=== PATIENT | female | born 1970 | race Asian ===

== ENCOUNTER 2017-08-06 16:11 | Inpatient (IN) | payer OTHER ==
[~2017-08-06] VITALS: Ht 149.9 cm; Wt 58.6 kg
[2017-08-06] MEDS ORDERED: 0.9 % SODIUM CHLORIDE 10 ML DISP.SYRIN. IV PRN (16:45)
[2017-08-06 17:47] LABS: BASO % 0 % (0-3); EOS % 0 % (0-3); HEMATOCRIT 31.3 % (36.0-47.0); HEMOGLOBIN 10.6 g/dL (12.0-15.5); LYMPH # 0.5 x10^3/uL (1.0-4.8); LYMPH % 3 % (24-48); MEAN CORPUSCULAR HEMOGLOBIN 24 pg (25-35); MEAN CORPUSCULAR HGB CONC 34 g/dL (31-37); MEAN CORPUSCULAR VOLUME 70 fL (79-100); MONO % 6 % (0-9); NEUT # 13.8 x10^3uL (1.8-7.7); NEUT % 91 % (31-73); PLATELET COUNT 305 x10^3/uL (140-400); RED BLOOD COUNT 4.48 x10^6/uL (3.50-5.40); RED CELL DISTRIBUTION WIDTH 13.4 % (11.5-14.5); WHITE BLOOD COUNT 15.2 x10^3/uL (4.0-11.0)
[2017-08-06] MEDS ORDERED: HYDROmorphone PF 2 MG/ML VIAL IV ONE (17:50)
--- NOTE | 2017-08-06 17:56 | PHYS DOC ---
Past History Past Medical History: Other Past Surgical History: , Other Alcohol Use: None Drug Use: None Adult General Chief Complaint Chief Complaint: SYNCOPE HPI HPI Patient is a 46 year old F who presents with syncope. Phouthone states that she has had cough or shortness of breath nausea abdominal pain and fever over the past 5 days. She states that her symptoms have been mildly worsening. She denies remembering her syncopal episode today. She was seen in [facility] earlier today and was prescribed an antibiotic for an ear infection. She also describes mild right ear pain Review of Systems Review of Systems Constitutional: Negative except history of present illness Eyes: Denies change in visual acuity, redness, or eye pain [] HENT: Nasal congestion and right ear pain Respiratory: Negative except history of present illness Cardiovascular: No additional information not addressed in HPI [] GI: Denies abdominal pain, nausea, vomiting, bloody stools or diarrhea [] : Denies dysuria or hematuria [] Musculoskeletal: Denies back pain or joint pain [] Integument: Denies rash or skin lesions [] Neurologic: Denies focal weakness or sensory changes [] mild headache is noted Endocrine: Denies polyuria or polydipsia [] Family History Family History Noncontributory Current Medications Current Medications Current Medications Medications (Trade) Dose Ordered Sig/Cheryl Start Time Stop Time Status Last Admin Dose Admin Hydromorphone HCl (Dilaudid) 2 mg 1X ONCE 08/06/17 17:50 08/06/17 17:51 Sodium Chloride (Normal Saline Flush) 10 ml QSHIFT PRN 08/06/17 16:45 08/06/17 17:30 10 ML Allergies Allergies Allergies Coded Allergies Type Severity Reaction Last Updated Verified ibuprofen Allergy Unknown abdominal pain 08/06/17 Yes tramadol Allergy Unknown abdominal pain 08/06/17 Yes Physical Exam Physical Exam Constitutional: Well developed, well nourished, no acute distress, non-toxic appearance. [] Mild diaphoresis HENT: Normocephalic, atraumatic, clear fluid behind the right TM. Left TM within normal limits Oropharynx moist, no oral exudates, nose normal. [] Eyes: EOMI, conjunctiva normal, no discharge. [] Neck: Normal range of motion, no tenderness, supple, no stridor. [] Cardiovascular: tachycardia with regular rhythm, no murmur [] Lungs & Thorax: Bilateral breath sounds clear to auscultation [] decreased breath sounds Abdomen: Bowel sounds normal, soft, no masses, no pulsatile masses. [] Mild right sided tenderness to deep palpation Skin: Warm, dry, no erythema, no rash. [] Back: No tenderness, no CVA tenderness. [] Extremities: No tenderness, no cyanosis, no clubbing, ROM intact, no edema. [] Neurologic: Alert and oriented X 3, normal motor function, normal sensory function, no focal deficits noted. [] Psychologic: Affect normal, judgement normal, mood normal. [] Current Patient Data Vital Signs Vital Signs Date Time Temp Pulse Resp B/P (MAP) Pulse Ox O2 Delivery O2 Flow Rate FiO2 08/06/17 16:11 100.1 111 21 95 Room Air EKG EKG Sinus tachycardia with no ST changes Radiology/Procedures Radiology/Procedures Chest x-ray pending Course & Med Decision Making Course & Med Decision Making Pertinent Labs and Imaging studies reviewed. (See chart for details) Care was transitioned to Dr. Roxana Diaz Disclaimer Emily Disclaimer This chart was dictated in whole or in part using Voice Recognition software in a busy, high-work load, and often noisy Emergency Department environment. It may contain unintended and wholly unrecognized errors or omissions. Departure Departure: Referrals: PROMISE HOUSTON DO, MPH (PCP) ABEBA RENEE MD Aug 06, 2017 17:55
[2017-08-06] MEDS ORDERED: IV NORMAL SALINE 1,000ML 1,000 ML ONE (17:59)
[2017-08-06] MEDS ORDERED: IV NORMAL SALINE 1,000ML 1,000 ML IV ONE (18:00)
[2017-08-06 18:02] LABS: ALBUMIN 2.4 g/dL (3.4-5.0); ALBUMIN/GLOBULIN RATIO 0.6 (1.0-1.7); CALCIUM 8.3 mg/dL (8.5-10.1); CREATININE 0.8 mg/dL (0.6-1.0); GFR 77.6; TOTAL BILIRUBIN 0.8 mg/dL (0.2-1.0); TOTAL PROTEIN 6.6 g/dL (6.4-8.2)
[2017-08-06 18:05] LABS: POTASSIUM 2.5 mmol/L (3.5-5.1)
[2017-08-06 18:19] LABS: BILIRUBIN,URINE NEG (NEG); CLARITY,URINE TURBID; COLOR,URINE YELLOW; GLUCOSE,URINE NEG (NEG); NITRITE,URINE POS (NEG); UROBILINOGEN,URINE 1 mg/dL (0.2 mg/dL)
[2017-08-06 18:20] LABS: RBC,URINE 0 /HPF (0-2); WBC,URINE >40 /HPF (0-4)
[2017-08-06 18:21] LABS: BACTERIA,URINE MOD /HPF (0-FEW)
[2017-08-06] MEDS ORDERED: IV NORMAL SALINE 1,000ML 1,000 ML IV SCH (18:25)
[2017-08-06] MEDS ORDERED: POTASSIUM CHLORIDE 20 MEQ/15 ML ORAL LIQUID. PO ONE (18:45)
[2017-08-06 18:46] LABS: AMPHETAMINE/METHAMPHETAMINE NEG (NEG); BARBITURATES NEG (NEG); BENZODIAZEPINES NEG (NEG); CANNABINOIDS NEG (NEG); COCAINE NEG (NEG); METHADONE NEG (NEG); OPIATES NEG (NEG); PHENCYCLIDINE NEG (NEG)
--- NOTE | 2017-08-06 18:56 | RAD ---
CT HEAD WO CONTRAST History: Syncope, dizziness, fever, chills Comparison: None. Technique: Noncontrast CT imaging was performed of the head. Exposure: One or more of the following individualized dose reduction techniques were utilized for this examination: 1. Automated exposure control 2. Adjustment of the mA and/or kV according to patient size 3. Use of iterative reconstruction technique. Findings: There is mild motion. No acute extra-axial or parenchymal hemorrhage is identified. There is no significant intra-axial mass effect, midline shift, or extra-axial fluid collection. The holland-white differentiation of the major vascular territories is preserved. The ventricles, sulci, and cisterns are within normal limits in size and configuration. Mastoid air cells are aerated. There is patchy jtyu-qu-rbglmzbx ethmoid air cell mucosal thickening No acute calvarial abnormality is identified. There is a small focus of nonspecific calcification along the right frontal cortical surface. There is likely mild cerebellar tonsillar ectopia. Impression: 1. No acute intracranial abnormality is identified. There is likely mild cerebellar tonsillar ectopia. 2. There is some patchy ethmoid air cell mucosal thickening. Electronically signed by: Obed Pereira MD (08/06/2017 6:53 PM) [facility]
[2017-08-06 18:59] LABS: MAGNESIUM 1.7 mg/dL (1.8-2.4)
[2017-08-06 19:16] LABS: ALBUMIN 2.4 g/dL (3.4-5.0); DIRECT BILIRUBIN 0.4 mg/dL (0.0-0.2); TOTAL BILIRUBIN 0.8 mg/dL (0.2-1.0); TOTAL PROTEIN 6.6 g/dL (6.4-8.2)
[2017-08-06] MEDS ORDERED: IOHEXOL 300 MG/ML 75 ML VIAL. IV ONE (20:30)
[2017-08-06] MEDS ORDERED: CONTRAST GIVEN MC PRN (20:30)
[2017-08-06] MEDS ORDERED: cefTRIAXone SODIUM 1 GM VIAL IV ONE (21:29)
[2017-08-06] MEDS ORDERED: IV NORMAL SALINE 50ML 50 ML ONE (21:29)
[2017-08-06] MEDS ORDERED: BENZONATATE 100 MG CAPSULE. PO ONE (21:45)
--- NOTE | 2017-08-06 22:03 | RAD ---
Chest CTA History: Elevated d-dimer, tachycardia, syncope Technique: After bolus of intravenous contrast, CT imaging was performed of the chest. Multiplanar reconstruction images to include MIP reconstruction images are submitted. Exposure: One or more of the following individualized dose reduction techniques were utilized for this examination: 1. Automated exposure control 2. Adjustment of the mA and/or kV according to patient size 3. Use of iterative reconstruction technique. Comparison: None Findings: [No pulmonary embolism is identified.] There is no pneumothorax, abnormal pericardial or pleural fluid, or lobar consolidation. Thoracic aortic caliber is within normal limits without intraluminal flap. No abnormality is identified of the limited visualized abdominal visceral organs. No significantly enlarged lymph nodes are identified, some small mediastinal nodes present. There is perihilar bronchial wall thickening. Impression: 1. No pulmonary embolism is identified. 2. There is perihilar bronchial wall thickening, can be seen with bronchitis. Electronically signed by: Obed Pereira MD (08/06/2017 10:00 PM) [facility]
--- NOTE | 2017-08-06 22:09 | EKG ---
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
[2017-08-06 22:36] LABS: % BANDS 6 % (0-9); % LYMPHS 1 % (24-48); % MONOS 8 % (0-10); % SEGS 85 % (35-66)
[2017-08-06 22:40] LABS: PLT ESTIMATE ADEQUATE (ADEQUATE); TARGET CELLS OCC
[2017-08-06 22:42] LABS: MICROCYTOSIS MOD
[2017-08-06 22:43] LABS: HYPOCHROMIA SLIGHT
[2017-08-06] MEDS: IPRATRPIUM/ALBUTEROL 0.5/2.5MG 3 ML NEBU. NEB SCH (23:53)
--- NOTE | 2017-08-06 23:54 | PHYS DOC ---
General Chief Complaint: SYNCOPE Stated Complaint: SYNCOPE Time Seen by MD: 18:11 Source: patient, RN/MD Exam Limitations: language barrier Problems: History of Present Illness Initial Comments Patient is a 46-year-old female brought to the ED by EMS for syncope. Patient was signed out to me at 1800 shift change, please see Dr Feng ED note. Upon receiving sign out I entered the following additional orders: Cardiac enzymes, magnesium, d-dimer, BNP, urine drug screen, CT of the head without contrast. Dr Feng reported that the patient was found in a school parking lot where she was picking up her son passed out at the wheel. EMS was called and on arrival the patient was awake and she was brought to the ED for evaluation. Patient relays that for the past several days she's had a dry cough and right ear pain, she presented to [facility] today and received a prescription for "antibiotic" which she had not yet filled. She's had some bilateral flank discomfort and chills for the past 3 days and admits to not having eaten or had much to drink during that time. She's had some chills sweats or myalgias but no measured fevers. She denies dysuria hematuria or odor, denies headache chest pain palpitations or difficulty breathing, in the ED denies any focal neurologic deficit. Albanian as a second language for the patient however she has good communication skills. ED vitals: 100.1, 111, 21, 110/63, 95% on room air Timing/Duration: getting worse (3 days) Severity: severe Modifying Factors: improves with other Associated Symptoms: cough, diaphoresis, fever/chills, loss of appetite, malaise, syncope, weakness, other Allergies: Coded Allergies: ibuprofen (Verified Allergy, Unknown, abdominal pain, 08/06/17) tramadol (Verified Allergy, Unknown, abdominal pain, 08/06/17) Past Medical History Medical History: other (prediabetic, GERD, chronic right ear pain) Surgical History: other (right ear surgery) Social History Smoker: non-smoker Alcohol: none Drugs: none Review of Systems Constitutional: see HPI EENTM: see HPI, denies eye pain, denies blurred vision, ear pain, denies ear discharge, denies nose pain, denies nose congestion, denies throat pain, denies mouth pain Respiratory: cough, denies shortness of breath, denies wheezing Cardiovascular: denies chest pain, denies palpitations, syncope Gastrointestinal: denies abdominal pain, denies diarrhea, nausea, denies vomiting Genitourinary: see HPI, denies dysuria, denies frequency, denies hematuria Musculoskeletal: see HPI, denies joint swelling, muscle pain, denies neck pain Psychiatric/Neurological: see HPI, denies headache Hematologic/Lymphatic: denies blood clots, denies easy bleeding, denies easy bruising Physical Exam General Appearance: WD/WN, no apparent distress Eyes: bilateral eye normal inspection, bilateral eye PERRL, bilateral eye EOMI Ear, Nose, Throat: hearing grossly normal, normal pharynx, other (mildly dry mucous membranes, slight bilateral TM redness no bulging good light reflex canals with some cerumen) Neck: non-tender, supple Respiratory: other (mildly coarse breath sounds bilaterally with good air movement no respiratory distress chest is nontender) Cardiovascular: normal peripheral pulses, no edema, tachycardia Gastrointestinal: normal bowel sounds, non tender (no epigastric or right upper quadrant tenderness), soft, no organomegaly Back: CVA tenderness (R), CVA tenderness (L) Extremities: normal range of motion, non-tender, normal inspection Neurologic/Psychiatric: console operator II-XII nml as tested, no motor/sensory deficits, alert, normal mood/affect, oriented x 3 Skin: normal color, warm/dry Orders, Labs, Meds EKG: Normal sinus rhythm 85 bpm, T inversion in V2, nonspecific T contour abnormalities no STEMI changes. Interpreted by Dr. Jackson. 2015: D-dimer elevated at 1.42, CTA of the chest ordered. Patient will have a prolonged ED course due to ED volume and added testing at shift change and with abnormal results. Pertinent labs: White blood cells 15.2, hemoglobin 10.6, MCV 70, d-dimer 1.42, potassium 2.5, lactic acid 1.2, magnesium 1.7, BUN 9, creatinine 0.8, AST 233, ALT 202, urinalysis grossly positive for products of infection no squamous epithelials, urine drug screen negative Normal saline bolus, Tessalon Perles, Rocephin 1 mg IV added to current order set PATIENT: ZBIGNIEW MONTOYA ACCOUNT: [id number] : 1970 LOCATION: ER AGE: 46 SEX: F EXAM STATUS: REG ER ORD. PHYSICIAN: APRIL JACKSON DO REASON: syncope PROCEDURE: CT HEAD WO CONTRAST CT HEAD WO CONTRAST History: Syncope, dizziness, fever, chills Comparison: None. Technique: Noncontrast CT imaging was performed of the head. Exposure: One or more of the following individualized dose reduction techniques were utilized for this examination: 1. Automated exposure control 2. Adjustment of the mA and/or kV according to patient size 3. Use of iterative reconstruction technique. Findings: There is mild motion. No acute extra-axial or parenchymal hemorrhage is identified. There is no significant intra-axial mass effect, midline shift, or extra-axial fluid collection. The holland-white differentiation of the major vascular territories is preserved. The ventricles, sulci, and cisterns are within normal limits in size and configuration. Mastoid air cells are aerated. There is patchy nonv-pv-ejqrqtcb ethmoid air cell mucosal thickening No acute calvarial abnormality is identified. There is a small focus of nonspecific calcification along the right frontal cortical surface. There is likely mild cerebellar tonsillar ectopia. Impression: 1. No acute intracranial abnormality is identified. There is likely mild cerebellar tonsillar ectopia. 2. There is some patchy ethmoid air cell mucosal thickening. Electronically signed by: Willow Pereira MD (08/06/2017 6:53 PM) [facility] DICTATED AND SIGNED BY: WILLOW PEREIRA MD DATE: 08/06/17 185 CC: APRIL JACKSON DO; PROMISE HOUSTON DO, MPH ~ PATIENT: ZBIGNIEW MONTOYA ACCOUNT: [id number] : 1970 LOCATION: ER AGE: 46 SEX: F EXAM STATUS: REG ER ORD. PHYSICIAN: APRIL JACKSON DO REASON: tachycardia, syncope, elev d-dimer PROCEDURE: CT ANGIOGRAPHY CHEST Chest CTA History: Elevated d-dimer, tachycardia, syncope Technique: After bolus of intravenous contrast, CT imaging was performed of the chest. Multiplanar reconstruction images to include MIP reconstruction images are submitted. Exposure: One or more of the following individualized dose reduction techniques were utilized for this examination: 1. Automated exposure control 2. Adjustment of the mA and/or kV according to patient size 3. Use of iterative reconstruction technique. Comparison: None Findings: [No pulmonary embolism is identified.] There is no pneumothorax, abnormal pericardial or pleural fluid, or lobar consolidation. Thoracic aortic caliber is within normal limits without intraluminal flap. No abnormality is identified of the limited visualized abdominal visceral organs. No significantly enlarged lymph nodes are identified, some small mediastinal nodes present. There is perihilar bronchial wall thickening. Impression: 1. No pulmonary embolism is identified. 2. There is perihilar bronchial wall thickening, can be seen with bronchitis. Electronically signed by: Willow Pereira MD (08/06/2017 10:00 PM) [facility] DICTATED AND SIGNED BY: WILLOW PERIERA MD DATE: 08/06/17 2154 CC: APRIL JACKSON DO; PROMISE HOUSTON DO, MPH ~ The patient remained pleasant, cooperative, and patient throughout the ED course despite prolonged period here in the emergency department. She had several episodes of coughing but no trouble breathing Tessalon Perles provided some relief. I discussed the patient with Dr. Conde who accepts the patient for inpatient treatment and further evaluation. Impressions: Syncope Hypokalemia Pyelonephritis Microcytic anemia likely iron deficiency Elevated d-dimer Elevated liver function tests APRIL JACKSON DO Aug 06, 2017 23:54
[2017-08-07] MEDS: IV NORMAL SALINE 1,000ML 1,000 ML IV SCH ×4 (02:44→22:45)
[2017-08-07 03:00] VITALS: BP 93/53
[2017-08-07] MEDS ORDERED: POTASSIUM CHLORIDE 20 MEQ/15 ML ORAL LIQUID. FT SCH (03:00)
[2017-08-07] MEDS ORDERED: MAGNESIUM SULFATE 2GM 50 ML IV ONE (03:00)
[2017-08-07 04:18] VITALS: BP 106/71
[2017-08-07 04:37] LABS: BASO # 0.1 x10^3/uL (0.0-0.2); BASO % 0 % (0-3); EOS % 0 % (0-3); LYMPH # 0.8 x10^3/uL (1.0-4.8); LYMPH % 5 % (24-48); MEAN CORPUSCULAR HEMOGLOBIN 24 pg (25-35); MEAN CORPUSCULAR HGB CONC 33 g/dL (31-37); MEAN CORPUSCULAR VOLUME 71 fL (79-100); MONO # 1.1 x10^3/uL (0.0-1.1); MONO % 6 % (0-9); NEUT # 16.1 x10^3uL (1.8-7.7); NEUT % 89 % (31-73); PLATELET COUNT 265 x10^3/uL (140-400); RED BLOOD COUNT 4.22 x10^6/uL (3.50-5.40); RED CELL DISTRIBUTION WIDTH 13.6 % (11.5-14.5); WHITE BLOOD COUNT 18.1 x10^3/uL (4.0-11.0)
[2017-08-07 04:56] LABS: ALBUMIN 2.2 g/dL (3.4-5.0); ALBUMIN/GLOBULIN RATIO 0.6 (1.0-1.7); CALCIUM 8.1 mg/dL (8.5-10.1); CREATININE 0.8 mg/dL (0.6-1.0); GFR 77.6; MAGNESIUM 2.5 mg/dL (1.8-2.4); POTASSIUM 4.2 mmol/L (3.5-5.1); TOTAL BILIRUBIN 0.6 mg/dL (0.2-1.0); TOTAL PROTEIN 6.2 g/dL (6.4-8.2)
[2017-08-07 05:00] VITALS: BP 90/58
[2017-08-07] MEDS: IPRATRPIUM/ALBUTEROL 0.5/2.5MG 3 ML NEBU. NEB SCH ×2 (05:31→11:01)
--- NOTE | 2017-08-07 07:47 | RAD ---
Chest, 2 views, 08/06/2017: History: Syncope, dizziness, chills The heart size and pulmonary vascularity are normal. No pulmonary infiltrates are seen. There is no evidence of pleural fluid. There is minimal spurring in the spine. IMPRESSION: No acute cardiopulmonary abnormality is detected.
[2017-08-07] MEDS ORDERED: PANTOPRAZOLE IV PUSH 40 MG VIAL. IVP ONE (08:20)
[2017-08-07 11:01] VITALS: BP 96/65
--- NOTE | 2017-08-07 13:29 | RAD ---
Abdominal ultrasound, 08/07/2017: History: Abdominal pain The gallbladder is within normal limits in size. There is no sonographic evidence of cholelithiasis. The gallbladder dent are not thickened. No bile duct dilatation is seen. The visualized portions of the liver, pancreas, spleen and both kidneys are unremarkable. The abdominal aorta and inferior vena cava show no significant abnormality. No free fluid is evident in the abdomen. IMPRESSION: No significant abnormality is detected.
[2017-08-07] MEDS ORDERED: MONT10TA9 PO (13:50)
[2017-08-07] MEDS ORDERED: FEXO180T81 PO (13:50)
[2017-08-07] MEDS ORDERED: PANT40TA3 PO (13:51)
[2017-08-07] MEDS ORDERED: ALBU8.5H8 INH (13:51)
[2017-08-07] MEDS ORDERED: AMOX1TAB58 PO (13:52)
[2017-08-07] MEDS ORDERED: ACET325T9 PO (13:52)
[2017-08-07] MEDS ORDERED: DEXT30SU19 PO (13:53)
[2017-08-07] MEDS ORDERED: DEXTROSE 50% 25 GM / 50ML DISP.SYRIN. IV PRN (14:00)
--- NOTE | 2017-08-07 14:59 | HP ---
ADMIT DATE: 08/07/2017 REASON FOR ADMISSION: Syncope, cough, left flank pain. HISTORY OF PRESENT ILLNESS: This is a 46-year-old female originally from [facility], who presented to the Emergency Room after the incident of syncope. She has not been feeling well and she was in the school parking lot where she was going to picker tender her son. Her son is only 5 years old. You have to go into the school to picker tender the child and she evidently passed out in the car and they came out to find and found her passed out in the car. EMS was called and she was taken to the hospital. PAST MEDICAL HISTORY: Significant for GERD. She has also been recently treated at [facility] for fever, chills, cough. She received a prescription for antibiotics, but she did not fill it. She also has had several days where she has felt so terrible that she has had very little to eat or drink. Other past medical history, prediabetes. She has fibromyalgia. PAST SURGICAL HISTORY: She has had right ear surgery. MEDICATIONS: Protonix. She states she was just recently placed on Protonix. SOCIAL HISTORY: Nonsmoker, nondrinker, no drugs. ALLERGIES: IBUPROFEN AND TRAMADOL. REVIEW OF SYSTEMS: Positive for fever back and forth, excessive sleeping over the last few days, ear pain, some nausea. Denies dysuria, frequency or hematuria. Positive muscle pain. 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 OBJECTIVE VITAL SIGNS: T-max was 100.1 yesterday afternoon; mildly tachycardic yesterday, now pulse is 84; blood pressure 96/65; and pulse ox 95% on room air. GENERAL: A 46-year-old who is in no acute distress. HEENT: Her TMs are dull bilaterally. No erythema or bulging of the drums. Nose is patent. Throat was clear. Tongue was dry. NECK: Supple, without adenopathy. LUNGS: Clear to auscultation. CARDIOVASCULAR: Regular rhythm and rate. ABDOMEN: Soft. She has some mild left flank tenderness, some mild right upper quadrant tenderness, but no rebound. EXTREMITIES: Without edema. LABORATORY DATA: AST 154; ALT is 190, that is going down since yesterday. Albumin is 2.2. Troponins negative x 3. CBC: White blood cell count 18.1, hemoglobin 10.0, hematocrit 30.0, MCV is 71. Drug screen negative. D-dimer 1.42. Urinalysis negative for glucose, but positive for protein, greater than 40 white cells, moderate leukocyte esterase, positive nitrites, hCG negative. IMAGING: Chest CTA shows some bronchitis, no pulmonary embolism. Abdominal ultrasound is pending. Head CT shows some patchy ethmoid air cell thickening. ASSESSMENT: 1. Pyelonephritis with sepsis. 2. Microcytic anemia, questionable etiology. Iron studies ordered. 3. Episode of syncope related to illness. 4. Fibromyalgia. 5. Acute bronchitis, on antibiotics. 6. Severe protein-calorie malnutrition. We will order supplements. 7. Fasting glucose of 200 in a prediabetic state. We will order hemoglobin A1c and treat further. She is on ceftriaxone and IV fluids, feels a little bit better this morning. 8. Hypomagnesemia that has been treated. 9. Hypokalemia of 2.5 and that also has been treated. MYRTLE CONNOLLY DO DR: FANI/andrade JOB#: [id number] / [id number]
[2017-08-07] MEDS: MONTELUKAST 10 MG TABLET. PO SCH (15:29)
[2017-08-07] MEDS: BENZONATATE 100 MG CAPSULE. PO SCH ×2 (15:29→19:48)
[2017-08-07] MEDS: guaiFENesin DM 600/30MG 1 TAB TAB.ER.12H PO SCH ×2 (15:29→19:48)
[2017-08-07] MEDS: INSULIN ASPART 300 UNITS/3 ML INSULN.PEN SQ SCH ×2 (16:30→19:51)
[2017-08-07 19:54] VITALS: BP 112/71
[2017-08-07] MEDS: ACETAMINOPHEN 325 MG TABLET PO PRN (20:06)
[2017-08-07 22:59] VITALS: BP 107/68
--- NOTE | 2017-08-07 23:45 | NUR ---
Pt c/o increased coughing and slight SOA. Normally uses rescue inhaler at home. Pt given duoneb treatment, reports improvement. Now resting in bed. Will monitor.
[2017-08-08] VITALS (12 sets, daily range): BP systolic 108–146; BP diastolic 75–94
[2017-08-08] MEDS ORDERED: IPRATRPIUM/ALBUTEROL 0.5/2.5MG 3 ML NEBU. NEB ONE
[2017-08-08] MEDS ORDERED: BENZOCAINE/MENTHOL LOZENGE 16'S BOX. ONE (04:53)
[2017-08-08] MEDS: BENZOCAINE/MENTHOL LOZENGE 16'S BOX. PO PRN ×2 (05:06→10:32)
[2017-08-08 06:09] LABS: HEMOGLOBIN A1C 5.6 % (4.8-5.6)
[2017-08-08 06:21] LABS: BASO # 0.1 x10^3/uL (0.0-0.2); BASO % 0 % (0-3); EOS # 0.1 x10^3/uL (0.0-0.7); EOS % 1 % (0-3); HEMATOCRIT 27.4 % (36.0-47.0); HEMOGLOBIN 9.2 g/dL (12.0-15.5); LYMPH # 2.2 x10^3/uL (1.0-4.8); LYMPH % 14 % (24-48); MEAN CORPUSCULAR HEMOGLOBIN 23 pg (25-35); MEAN CORPUSCULAR HGB CONC 34 g/dL (31-37); MEAN CORPUSCULAR VOLUME 70 fL (79-100); MONO # 1.7 x10^3/uL (0.0-1.1); MONO % 11 % (0-9); NEUT % 74 % (31-73); PLATELET COUNT 317 x10^3/uL (140-400); RED BLOOD COUNT 3.93 x10^6/uL (3.50-5.40); RED CELL DISTRIBUTION WIDTH 13.8 % (11.5-14.5); WHITE BLOOD COUNT 16.1 x10^3/uL (4.0-11.0)
[2017-08-08 06:27] LABS: ALBUMIN 2.3 g/dL (3.4-5.0); ALBUMIN/GLOBULIN RATIO 0.6 (1.0-1.7); CALCIUM 8.3 mg/dL (8.5-10.1); CREATININE 0.7 mg/dL (0.6-1.0); GFR 90.5; MAGNESIUM 1.9 mg/dL (1.8-2.4); POTASSIUM 3.1 mmol/L (3.5-5.1); TOTAL BILIRUBIN 0.3 mg/dL (0.2-1.0); TOTAL PROTEIN 6.4 g/dL (6.4-8.2)
[2017-08-08 07:16] LABS: % BANDS 2 % (0-9); % BASOS 1 % (0-3); % EOS 3 % (0-5); % LYMPHS 20 % (24-48); % MONOS 2 % (0-10); % SEGS 72 % (35-66)
[2017-08-08 07:17] LABS: MICROCYTOSIS MOD; PLT ESTIMATE INCREASED (ADEQUATE)
[2017-08-08] MEDS: INSULIN ASPART 300 UNITS/3 ML INSULN.PEN SQ SCH ×4 (07:30→19:54)
[2017-08-08] MEDS ORDERED: MONTELUKAST 10 MG TABLET. PO SCH (08:00)
[2017-08-08] MEDS ORDERED: VANCOMYCIN PER PHARMACY MC PRN (08:00)
[2017-08-08] MEDS: PANTOPRAZOLE 40 MG TABLET. PO SCH (08:06)
[2017-08-08] MEDS: ASCORBIC ACID 500 MG TABLET PO SCH (08:10)
[2017-08-08] MEDS: guaiFENesin DM 600/30MG 1 TAB TAB.ER.12H PO SCH ×2 (08:10→19:57)
[2017-08-08] MEDS: POTASSIUM CHLORIDE 20 MEQ TABLET.ER. PO SCH (08:10)
[2017-08-08] MEDS: ACETAMINOPHEN 325 MG TABLET PO PRN ×2 (08:10→19:57)
[2017-08-08] MEDS: FERROUS SULFATE 325 MG TABLET. PO SCH (08:10)
[2017-08-08] MEDS: BENZONATATE 100 MG CAPSULE. PO SCH ×3 (08:11→19:57)
[2017-08-08] MEDS: MONTELUKAST 10 MG TABLET. PO SCH (08:11)
[2017-08-08] MEDS ORDERED: IV NORMAL SALINE 100ML 100 ML ONE (08:45)
[2017-08-08] MEDS ORDERED: VANCOMYCIN 1.5 GM in IV NORMAL SALINE 500ML 500 ML IV ONE (09:00)
--- NOTE | 2017-08-08 09:15 | NUR ---
Pharmacy Vancomycin Dosing Note S:Consulted to monitor and dose vancomycin started 08/08/17. O:ZBIGNIEW MONTOYA is a 46 year old F with Sepsis Pyelonephritis . Height: 4 feet, 11 inches Weight: 58.271189 kg [place] Body Weight: 43.20 Adjusted Body Weight: 49.20 Dosing Weight: Actual Other Antibiotics: ROCEPHIN LABS: Last BUN: 5 Last Creatinine: 0.7 Creatinine Clearance: 78.8 Last WBC: 16.1 Last Platelets: 317 Vancomycin Dosing: Loading Dose: 1500 mg x1 Dosing Weight: Actual Target Trough: 15-20 A: Initial dosing is based on height, actual weight, renal function, and indication. P: 1. Give Vancomycin 1500mg IV initially, then Vancomycin 1000mg IV q12h. 2. Follow up Trough level on 08/09/17 at 2030. 3. Pharmacy will continue to monitor, follow and adjust therapy as needed. NASREEN PARDO RPH 08/08/17 0915
[2017-08-08] MEDS ORDERED: IPRATRPIUM/ALBUTEROL 0.5/2.5MG 3 ML NEBU. NEB SCH (10:00)
[2017-08-08] MEDS ORDERED: methylPREDNISolone SOD SUCC PF 40 MG/ML VIAL. IV ONE (13:00)
[2017-08-08] MEDS ORDERED: NORMAL SALINE IV ONE (13:00)
[2017-08-08] MEDS ORDERED: diphenhydrAMINE 50 MG/ML VIAL IVP PRN (13:00)
[2017-08-08] MEDS ORDERED: SODIUM FERRIC GLUCONAT IV ONE (13:00)
[2017-08-08] MEDS ORDERED: BUDESONIDE 0.5 MG/2 ML NEBU NEB SCH (13:00)
[2017-08-08] MEDS ORDERED: SUCROSE IV ONE (13:00)
[2017-08-08] MEDS ORDERED: IRON SUCROSE COMPLEX 200 MG in IV NORMAL SALINE 100ML 100 ML IV ONE (14:00)
[2017-08-08] MEDS ORDERED: HYDROcodone/CHLORPHEN POLIS 5 ML SUS.ER.12H PO SCH (21:00)
[2017-08-08] MEDS: VANCOMYCIN 1 GM in IV NORMAL SALINE 250ML 250 ML IV SCH (21:25)
--- NOTE | 2017-08-08 21:29 | NUR ---
Pt instructed to use albuterol inhaler brought from home per free text order from Dr. Conde. 2 puffs IH administered. Pt has inhaler at bedside. Tussionex also administered at HS per order for cough.
--- NOTE | 2017-08-09 01:23 | PN ---
DATE: 08/08/2017 PROBLEMS: 1. Transaminitis, resolving. 2. Hypokalemia. 3. Hypomagnesemia. SUBJECTIVE: The patient resting in bed, states she did not sleep almost throughout the night because of coughing. She is coughing up clear sputum. She has had other bouts but has never been diagnosed with asthma. She has been on short course of 4 or 5 days of prednisone in the past. Her is here and is helping a little with the Nepalese translation as some of the communication is getting lost, I am assuming. Her flank pain is better. She is not having a fever. We discussed at length her iron deficiency. The patient does not have heavy periods and has considerable iron deficiency for someone her age. OBJECTIVE: VITAL SIGNS: Blood pressure 108/75, temperature 98, pulse 77, respirations 16, pulse ox 98% on room air. GENERAL: Color is pale, eye grounds are pale. Her tongue was moist. NECK: Supple. LUNGS: Clear. CARDIOVASCULAR: Regular rhythm and rate. ABDOMEN: Soft, nontender. Mild flank pain on the left. EXTREMITIES: Without edema. LABORATORY DATA: Reviewed. Blood sugar ____ fasting was 136 now and at 11:00 was 102. Iron studies: Serum iron is 7, TIBC 231, and iron saturation is 3. Her ferritin is 257, however, this is also acute phase reactant, we cannot go by her ferritin. PLAN: Discussed at length her iron deficiency and will need to have a scope when she is discharged, I recommend she have an EGD as well as a colonoscopy. I did start her on iron. Also noted that her potassium is low, she has depleting potassium. This will possibly need to be investigated. She also has hematuria and will need her urine repeated as an outpatient. She has had transaminitis but that is trending down towards normal ____ she went several times without eating and very slowly, though is not getting that, she will need some nutritional support on that as well. Her white count did not come out down very much, and so I also added in vancomycin while we are waiting for her urine culture to come back. I do recommend she stay an extra day. MYRTLE CONNOLLY DO DR: FANI/andrade JOB#: [id number] / [id number]
[2017-08-09] MEDS: BENZOCAINE/MENTHOL LOZENGE 16'S BOX. PO PRN (02:58)
[2017-08-09 06:17] VITALS: BP 113/73
[2017-08-09 06:47] LABS: BASO # 0.1 x10^3/uL (0.0-0.2); BASO % 0 % (0-3); EOS % 0 % (0-3); HEMATOCRIT 27.9 % (36.0-47.0); HEMOGLOBIN 9.5 g/dL (12.0-15.5); LYMPH # 1.8 x10^3/uL (1.0-4.8); LYMPH % 12 % (24-48); MEAN CORPUSCULAR HEMOGLOBIN 24 pg (25-35); MEAN CORPUSCULAR HGB CONC 34 g/dL (31-37); MEAN CORPUSCULAR VOLUME 70 fL (79-100); MONO # 1.2 x10^3/uL (0.0-1.1); MONO % 8 % (0-9); NEUT # 12.5 x10^3uL (1.8-7.7); NEUT % 80 % (31-73); PLATELET COUNT 408 x10^3/uL (140-400); RED BLOOD COUNT 4.01 x10^6/uL (3.50-5.40); WHITE BLOOD COUNT 15.5 x10^3/uL (4.0-11.0)
[2017-08-09 06:53] LABS: ALBUMIN 2.3 g/dL (3.4-5.0); ALBUMIN/GLOBULIN RATIO 0.6 (1.0-1.7); CALCIUM 8.9 mg/dL (8.5-10.1); CREATININE 0.6 mg/dL (0.6-1.0); GFR 108.1; MAGNESIUM 1.9 mg/dL (1.8-2.4); POTASSIUM 3.4 mmol/L (3.5-5.1); TOTAL BILIRUBIN 0.2 mg/dL (0.2-1.0); TOTAL PROTEIN 6.3 g/dL (6.4-8.2)
[2017-08-09] MEDS: INSULIN ASPART 300 UNITS/3 ML INSULN.PEN SQ SCH (07:30)
[2017-08-09] MEDS: VANCOMYCIN 1 GM in IV NORMAL SALINE 250ML 250 ML IV SCH (09:00)
[2017-08-09] MEDS ORDERED: FERR-26 PO (09:02)
[2017-08-09] MEDS ORDERED: AMOX1TAB61 PO (09:02)
[2017-08-09] MEDS ORDERED: FLUT1DIS IH (09:02)
[2017-08-09] MEDS ORDERED: HYDROcodone/CHLORPHEN POLIS PO (09:02)
[2017-08-09] MEDS ORDERED: GUAI-108 PO (09:02)
[2017-08-09] MEDS ORDERED: ASCO500T2 PO (09:02)
[2017-08-09] MEDS: FERROUS SULFATE 325 MG TABLET. PO SCH (09:14)
[2017-08-09] MEDS: ASCORBIC ACID 500 MG TABLET PO SCH (09:14)
[2017-08-09] MEDS: PANTOPRAZOLE 40 MG TABLET. PO SCH (09:14)
[2017-08-09] MEDS: BENZONATATE 100 MG CAPSULE. PO SCH (09:15)
[2017-08-09] MEDS: guaiFENesin DM 600/30MG 1 TAB TAB.ER.12H PO SCH (09:15)
[2017-08-09] MEDS: MONTELUKAST 10 MG TABLET. PO SCH (09:15)
[2017-08-09] MEDS: POTASSIUM CHLORIDE 20 MEQ TABLET.ER. PO SCH (09:15)
[2017-08-09] MEDS ORDERED: AMOXICILLIN/K CLAV 875/125MG TABLET. PO ONE (10:00)
[2017-08-09] MEDS: ACETAMINOPHEN 325 MG TABLET PO PRN (10:17)
--- NOTE | 2017-08-09 10:34 | NUR ---
Discharge Note: LACY MONTOYA [facility] Discharge instructions and discharge home medications reviewed with Patient and a copy given. All questions have been answered and understanding verbalized. The following instructions and handouts were given: MEDICATIONS, FOLLOW UP INSTRUCTIONS, EDUCATIONAL HANDOUTS AND PRESCRIPTIONS GIVEN. PATIENT INSTRUCTED TO SUPERVISOR MAPPING PRESCRIPTIONS AT THE PHARMACY AND TO CALL WITH ANY ISSUES. Discontinued lines and drains: PERIPHERAL IV DISCONTINUED WITH NO COMPLICATIONS Patient discharged to HOME with via PERSONAL FAMILY VEHICLE.
--- NOTE | 2017-08-09 21:45 | DS ---
DATE OF DISCHARGE: 08/09/2017 DISCHARGE DIAGNOSES: 1. Syncopal episode secondary to dehydration. 2. Transaminitis, almost resolved. 3. Severe iron deficiency - received iron during hospitalization. 4. Sepsis with gram-negative pyelonephritis. 5. Hypokalemia. 6. Hypomagnesemia. 7. Acute bronchitis. HOSPITAL COURSE: A 46-year-old female who had a syncopal episode, while sitting in the parking lot waiting for her 5-year-old. Prior to that, she had been sick for several days with severe cough and left flank pain. She was unable to keep anything down and was found in the parking lot after passing out. She was transported by ambulance to [place] and was found to have severe UTI, severe hypokalemia with a 2.5 potassium, hypomagnesemia, transaminitis, and was admitted. She received IV antibiotics. Her urine culture KEN was not available at the time of discharge, but it was growing out gram-negative rods. Her potassium was replaced, her magnesium replaced. She received a small dose of steroids for her acute bronchitis and reactive airway disease. She received iron infusion due to her severe iron deficiency. I had extensive discussion for over 30 minutes with both the patient and her as the language barrier was impeding communication as the patient speaks Laotian. also Laotian, but Cuban is actually very good. I discussed at length with them that in the face of not having very heavy periods and actually skipping periods that this severe iron deficiency would need to be worked up with an endoscopy. She also had a sheet from her PCP that she just seen recommending that she make appointments with [facility] and have a CAT scan of her sinuses. She did have a severe cough during the hospitalization, coughing up clear sputum and this was helped by the steroid as well as her albuterol inhaler. She did not like the breathing treatments. Extensive discharge instructions were type written by myself and she will continue on p.o. Augmentin for 10 days. Please see the record. PHYSICAL EXAMINATION: VITAL SIGNS: On the day of discharge, blood pressure 113/73, pulse 86, respirations 20, temperature 98.2, pulse ox is 98% on room air. LABORATORY DATA: Also reviewed. Transaminitis is almost resolved, potassium was 3.4, this was replaced. Also, she had a transient elevation in her glucose, which is really normalized at the time of discharge. PLAN: Follow up with her primary care physician within the week and make appointments that are appropriate. MYRTLE CONNOLLY DO DR: FANI/andrade JOB#: [id number] / [id number]
== END 2017-08-09 10:30 | disposition home or self-care (01) | DRG 871 ==
LOC: ER 16:11 → 1 SOUTH 23:01
PROVIDERS: ADMIT Family Medicine; ATTEND Family Medicine
DX: A41.9 Sepsis, unspecified organism (principal); E43 Unspecified severe protein-calorie malnutrition; N12 Tubulo-interstitial nephritis, not specified as acute or chronic; E83.42 Hypomagnesemia; D50.9 Iron deficiency anemia, unspecified; E86.0 Dehydration; Z68.26 Body mass index [BMI] 26.0-26.9, adult; E87.6 Hypokalemia; H66.90 Otitis media, unspecified, unspecified ear; J20.9 Acute bronchitis, unspecified; J45.909 Unspecified asthma, uncomplicated; R74.0 Nonspecific elevation of levels of transaminase and lactic acid dehydrogenase [LDH]; R73.03 Prediabetes; B96.89 Other specified bacterial agents as the cause of diseases classified elsewhere; K21.9 Gastro-esophageal reflux disease without esophagitis; M79.7 Fibromyalgia; Y92.481 Parking lot as the place of occurrence of the external cause; Z88.8 Allergy status to other drugs, medicaments and biological substances
CPT/HCPCS: 36415; 70450; 71020; 71275; 76700; 80053; 80076; 80307; 81001; 81025; 82550; 82728; 82947; 83036; 83540; 83550; 83605; 83690; 83735; 83880; 84484; 85007; 85025; 85379; 87040; 87086; 87186; 93005; 94640; 96361; 96365; 96366; 96375; C9113; J0696; J1170; J1756; J1815; J2920; J3370; J3475; J7040; J7050; J7620; Q9967; 99285-25; G0479; J7030

== ENCOUNTER → 2018-03-27 | Outpatient (CLI) | payer OTHER ==
[2018-03-13 16:01] VITALS: BP 124/74
[~2018-03-27] MED LIST: 0.9 % SODIUM CHLORIDE 10 ML VIAL ONE; ACET325T9 PO; ALBU8.5H8 INH; AMOX1TAB58 PO; AMOX1TAB61 PO; ASCO500T2 PO; DEXT30SU19 PO; FERR325T14 PO; FEXO180T81 PO; FLUT1DIS IH; GUAI-108 PO; HYDROcodone/CHLORPHEN POLIS PO; IOHEXOL 300 MG/ML 50 ML VIAL. ONE; LIDOCAINE 1% PF 30 ML VIAL. ONE; LIDOCAINE 2% PF Vial for OR 5 ML VIAL. ONE; MIDAZOLAM HCL PF 2 MG/2 ML VIAL. ONE; MONT10TA9 PO; PANT40TA3 PO; PROPOFOL 20 ML IV ONE; methylPREDNISolone ACETATE 80 MG/ML VIAL. ONE
== END ==
LOC: SURG 13:31
PROVIDERS: ATTEND Anesthesiology Pain Medicine
DX: M54.5 Low back pain (principal); K21.9 Gastro-esophageal reflux disease without esophagitis; Z87.440 Personal history of urinary (tract) infections; Z79.899 Other long term (current) drug therapy
CPT/HCPCS: 64479; 64480; J1040; J2001; J2250; J2704; J3010; Q9967

== ENCOUNTER → 2018-05-08 | Day surgery (SDC) | payer OTHER ==
[2018-03-13 16:01] VITALS: BP 124/74
[~2018-05-08] MED LIST changes: +ATROPINE 0.5 MG/5 ML DISP.SYRIN. ONE; +EPINEPHrine SYRINGE 1 MG/10 ML SYRINGE ONE; +FLUMAZENIL 0.5 MG/5 ML VIAL. IV ONE; +GLUCAGON,HUMAN RECOMBINANT 1 MG KIT. ONE; -LIDOCAINE 2% PF Vial for OR 5 ML VIAL. ONE; +NALOXONE 0.4 MG/ML VIAL. ONE; -PROPOFOL 20 ML IV ONE; +diphenhydrAMINE 50 MG/ML VIAL ONE
== END | disposition home or self-care (01) ==
LOC: SURG 13:17
PROVIDERS: ATTEND Anesthesiology Pain Medicine
DX: M54.12 Radiculopathy, cervical region (principal); K21.9 Gastro-esophageal reflux disease without esophagitis; Z87.440 Personal history of urinary (tract) infections; Z98.890 Other specified postprocedural states
CPT/HCPCS: 62321; J1040; J2001; J2250; Q9967; 64490

== ENCOUNTER → 2018-09-18 | Outpatient (CLI) | payer OTHER ==
[2018-03-13 16:01] VITALS: BP 124/74
[~2018-09-18] MED LIST changes: -0.9 % SODIUM CHLORIDE 10 ML VIAL ONE; -ATROPINE 0.5 MG/5 ML DISP.SYRIN. ONE; +BUPIVACAINE MPF 0.5% 30 ML VIAL. ONE; -EPINEPHrine SYRINGE 1 MG/10 ML SYRINGE ONE; -FLUMAZENIL 0.5 MG/5 ML VIAL. IV ONE; -GLUCAGON,HUMAN RECOMBINANT 1 MG KIT. ONE; -IOHEXOL 300 MG/ML 50 ML VIAL. ONE; -NALOXONE 0.4 MG/ML VIAL. ONE; -diphenhydrAMINE 50 MG/ML VIAL ONE; -methylPREDNISolone ACETATE 80 MG/ML VIAL. ONE
== END | disposition home or self-care (01) ==
LOC: SURG 09:36
PROVIDERS: ATTEND Anesthesiology Pain Medicine
DX: M47.812 Spondylosis without myelopathy or radiculopathy, cervical region (principal); K21.9 Gastro-esophageal reflux disease without esophagitis; G89.29 Other chronic pain; J30.2 Other seasonal allergic rhinitis; R51 Headache
CPT/HCPCS: 64490; 64491; 64492; J2001; J2250; J3490; 99152; J3010

== ENCOUNTER → 2020-12-08 | Outpatient (CLI) | payer OTHER ==
[2018-03-13 16:01] VITALS: BP 124/74
[~2020-12-08] MED LIST changes: +ALBU2.5V8 INH; -ALBU8.5H8 INH; -ASCO500T2 PO; +ASCO500T4 PO; -BUPIVACAINE MPF 0.5% 30 ML VIAL. ONE; -LIDOCAINE 1% PF 30 ML VIAL. ONE; -MIDAZOLAM HCL PF 2 MG/2 ML VIAL. ONE; +MONT10TA80 PO; -MONT10TA9 PO; +PREG75CA PO
== END | disposition home or self-care (01) ==
LOC: SURG 12:49
PROVIDERS: ATTEND Anesthesiology
DX: M54.2 Cervicalgia (principal); D50.0 Iron deficiency anemia secondary to blood loss (chronic); J45.909 Unspecified asthma, uncomplicated; K21.9 Gastro-esophageal reflux disease without esophagitis; M54.12 Radiculopathy, cervical region; M79.18 Myalgia, other site; Z87.440 Personal history of urinary (tract) infections; Z98.891 History of uterine scar from previous surgery; Z98.890 Other specified postprocedural states; Z88.8 Allergy status to other drugs, medicaments and biological substances; Z88.6 Allergy status to analgesic agent; Z82.49 Family history of ischemic heart disease and other diseases of the circulatory system
CPT/HCPCS: 99214; G0463

== ENCOUNTER → 2021-04-28 | Outpatient (CLI) | payer OTHER ==
[2018-03-13 16:01] VITALS: BP 124/74
== END ==
LOC: LAB 11:41
PROVIDERS: ATTEND Anesthesiology
DX: Z01.812 Encounter for preprocedural laboratory examination (principal); Z20.822 Contact with and (suspected) exposure to COVID-19
CPT/HCPCS: U0003

== ENCOUNTER → 2021-07-20 | Day surgery (SDC) | payer OTHER ==
[~2021-07-20] MED LIST changes: +0.9 % SODIUM CHLORIDE 10 ML VIAL. ONE; +DEXAMETHASONE SOD PHOS 10 MG/ML VIAL. ONE; +IOHEXOL 300 MG/ML 50 ML VIAL. ONE; +LIDOCAINE 1% PF 30 ML VIAL. ONE
[2021-07-20 13:46] VITALS: BP 116/87
== END | disposition home or self-care (01) ==
LOC: SURG 12:58
PROVIDERS: ATTEND Anesthesiology
DX: M54.12 Radiculopathy, cervical region (principal); G89.29 Other chronic pain; E78.5 Hyperlipidemia, unspecified; K21.9 Gastro-esophageal reflux disease without esophagitis; M79.7 Fibromyalgia; D64.9 Anemia, unspecified; Z98.890 Other specified postprocedural states; Z79.899 Other long term (current) drug therapy; Z82.49 Family history of ischemic heart disease and other diseases of the circulatory system
CPT/HCPCS: 62321; J1100; Q9967